=== PATIENT | female | born 1970 | race African-American/Black ===

== ENCOUNTER 2022-08-21 13:04 | Inpatient (IN) ==
[2022-08-21 17:20] LABS: ABS Basophils 0.1 10^3/uL (0.0-0.1); ABS Eosinophils 0.1 10^3/uL (0.0-0.5); ABS Lymphocytes 2.4 10^3/uL (1.0-4.8); ABS Neutrophils 4.1 10^3/uL (1.5-7.6); ABS Nucleated RBC 0.01 10^3/ul; Eosinophil % 1.6 %; Hematocrit 21.9 % (35-45); Hemoglobin 6.9 g/dL (11.5-14.3); Lymphocyte % 31.1 %; Mean Corpuscular Hemoglobin 20.5 pg (27-33); Mean Corpuscular Hgb Conc 31.4 g/dL (31-36); Mean Corpuscular Volume 65.1 fL (80-97); Mean Platelet Volume 9.2 fL (7.5-11.2); Nucleated Red Blood Cells % 0.1 /100 WBC (0.0-0.4); Platelet Count 257 10^3/uL (150-450); Red Blood Count 3.36 10^6/uL (3.63-4.92); Red Cell Distribution Width 22.1 % (12-17); White Blood Count 7.6 10^3/uL (3.8-11.8)
[2022-08-21 17:25] LABS: Albumin 3.9 g/dL (3.2-5.2); Albumin/Globulin Ratio 1.3 (1-3); C Reactive Protein 8.87 mg/L (<8.01); Creatinine, Serum 1.11 mg/dL (0.51-0.95); Globulin 2.9 g/dL (2-4); Potassium 4.5 mmol/L (3.5-5.0); Total Bilirubin 0.3 mg/dL (0.2-1.0); Total Protein 6.8 g/dL (6.4-8.9); eGFR CKD-EPI 59.4 (>60)
[2022-08-21 17:50] LABS: Microcytosis 3+
[2022-08-21] MEDS ORDERED: Morphine 4 MG/ML VIAL (1 ml) IV ONE ×2 (17:50→19:58)
[2022-08-21] MEDS ORDERED: Ondansetron 4 mg VIAL 2 MG/ML 2 ml VIAL IV ONE (17:50)
[2022-08-21] MEDS ORDERED: Lactated Ringers 1000 ml BAG 1,000 ML IV ONE ×2 (17:50→19:22)
[2022-08-21 17:51] LABS: Anisocytosis 2+
[2022-08-21 17:52] LABS: Tear Drop Cells 1+
[2022-08-21] MEDS ORDERED: Iodixanol (CONTRAST) 320 MG/ML 100 ML SDV IV ONE (18:25)
[2022-08-21] MEDS ORDERED: Ondansetron 4 mg VIAL 2 MG/ML 2 ml VIAL IV PRN (20:28)
[2022-08-21 21:03] LABS: Hematocrit for Retic CNT 21.9 % (35-45); RBC Retic Count 3.36 10^6/ul (3.63-4.92)
[2022-08-21 21:05] LABS: Corrected Retic Count 0.5 % (0.5-1.5); Immature Retic Fraction 0.41
[2022-08-21] MEDS: HYDROmorphone 0.5 MG/0.5 ML SYRINGE IV SLOW PU PRN (21:44)
[2022-08-21 21:59] LABS: % Iron Saturation 4 % (15-55); .Transferrin 389 mg/dL (203-362); Iron < 20 ug/dL (50-212); Total Iron Binding Capacity 545 mcg/dL (250-450); Unsaturated Iron Binding 525 ug/dL
[2022-08-21 22:17] LABS: Ferritin 8.6 ng/mL (11-307)
[2022-08-22] MEDS: NS 0.9% 1000 ml BAG 1,000 ML IV SCH ×2 (03:01→12:51)
[2022-08-22] MEDS: HYDROmorphone 0.5 MG/0.5 ML SYRINGE IV SLOW PU PRN ×5 (03:01→21:03)
[2022-08-22 06:40] LABS: ABS Eosinophils 0.1 10^3/uL (0.0-0.5); ABS Lymphocytes 1.9 10^3/uL (1.0-4.8); ABS Monocytes 0.8 10^3/uL (0.0-0.9); ABS Neutrophils 3.3 10^3/uL (1.5-7.6); Eosinophil % 2.3 %; Hematocrit 23.7 % (35-45); Hemoglobin 7.7 g/dL (11.5-14.3); Lymphocyte % 31.2 %; Mean Corpuscular Hgb Conc 32.4 g/dL (31-36); Mean Corpuscular Volume 67.9 fL (80-97); Mean Platelet Volume 9.4 fL (7.5-11.2); Platelet Count 233 10^3/uL (150-450); Red Blood Count 3.48 10^6/uL (3.63-4.92); Red Cell Distribution Width 23.5 % (12-17); White Blood Count 6.2 10^3/uL (3.8-11.8)
[2022-08-22 06:54] LABS: Calcium 8.5 mg/dL (8.6-10.3); Creatinine, Serum 0.87 mg/dL (0.51-0.95); Magnesium 1.6 mg/dL (1.9-2.7); Potassium 4.2 mmol/L (3.5-5.0); eGFR CKD-EPI 79.6 (>60)
[2022-08-22] MEDS ORDERED: Magnesium Sulf 4 GM/100 ML IV 4,000 MG/100 ML BAG IVPB ONE (08:07)
[2022-08-22] MEDS ORDERED: Lisinopril/HCTZ 20/25 TAB (NF) PO SCH (09:00)
[2022-08-22] MEDS ORDERED: LINACLOTIDE 145 MCG PO SCH (09:00)
[2022-08-22] MEDS ORDERED: Diatrizoate Meg/Sod(CONTRAST) 30 ML ORAL.SOLN PO ONE (18:15)
[2022-08-23] MEDS: NS 0.9% 1000 ml BAG 1,000 ML IV SCH ×3 (00:01→17:30)
[2022-08-23] MEDS: HYDROmorphone 0.5 MG/0.5 ML SYRINGE IV SLOW PU PRN ×5 (02:16→21:56)
[2022-08-23 06:13] LABS: ABS Eosinophils 0.2 10^3/uL (0.0-0.5); ABS Lymphocytes 1.9 10^3/uL (1.0-4.8); ABS Monocytes 0.5 10^3/uL (0.0-0.9); ABS Neutrophils 2.4 10^3/uL (1.5-7.6); Eosinophil % 3.1 %; Hematocrit 23.2 % (35-45); Hemoglobin 7.4 g/dL (11.5-14.3); Lymphocyte % 37.8 %; Mean Corpuscular Volume 68.7 fL (80-97); Nucleated Red Blood Cells % 0.1 /100 WBC (0.0-0.4); Platelet Count 243 10^3/uL (150-450); Red Blood Count 3.38 10^6/uL (3.63-4.92); Red Cell Distribution Width 23.1 % (12-17)
[2022-08-23 06:39] LABS: Potassium 4.4 mmol/L (3.5-5.0)
[2022-08-23 07:22] LABS: Calcium 8.4 mg/dL (8.6-10.3); Creatinine, Serum 0.9 mg/dL (0.51-0.95); Magnesium 1.9 mg/dL (1.9-2.7); eGFR CKD-EPI 76.4 (>60)
[2022-08-23] MEDS: CMC:LINACLOTIDE 72 MCG CAP (NF) PO SCH (08:36)
[2022-08-23] MEDS ORDERED: Ferric Gluconate IV 125 MG in NS 0.9% 100 ml BAG 100 ML IVPB ONE (09:30)
[2022-08-23] MEDS ORDERED: Levalbuterol 1.25MG/0.5ML NEB.SOL INH ONE (14:01)
[2022-08-23] MEDS ORDERED: Levalbuterol 1.25MG/0.5ML NEB.SOL ONE (14:04)
[2022-08-23] MEDS ORDERED: Propofol 10 MG/ML 20 ML BTL ONE (14:39)
[2022-08-23] MEDS ORDERED: Lidocaine 2% PF 5 ML VIAL ONE (14:39)
[2022-08-23] MEDS ORDERED: Magnesium Hydroxide LIQ 30 ML UDC PO ONE (14:47)
[2022-08-24] MEDS: NS 0.9% 1000 ml BAG 1,000 ML IV SCH (04:02)
[2022-08-24] MEDS: HYDROmorphone 0.5 MG/0.5 ML SYRINGE IV SLOW PU PRN (04:03)
[2022-08-24 06:06] LABS: ABS Eosinophils 0.1 10^3/uL (0.0-0.5); ABS Lymphocytes 1.5 10^3/uL (1.0-4.8); ABS Monocytes 0.4 10^3/uL (0.0-0.9); ABS Neutrophils 3.1 10^3/uL (1.5-7.6); Eosinophil % 1.6 %; Hematocrit 22.8 % (35-45); Hemoglobin 7.3 g/dL (11.5-14.3); Mean Corpuscular Hemoglobin 21.8 pg (27-33); Mean Corpuscular Hgb Conc 31.9 g/dL (31-36); Mean Corpuscular Volume 68.3 fL (80-97); Nucleated Red Blood Cells % 0.1 /100 WBC (0.0-0.4); Platelet Count 251 10^3/uL (150-450); Red Blood Count 3.34 10^6/uL (3.63-4.92); Red Cell Distribution Width 23.4 % (12-17)
[2022-08-24 06:19] LABS: Calcium 8.4 mg/dL (8.6-10.3); Creatinine, Serum 0.82 mg/dL (0.51-0.95); Magnesium 1.7 mg/dL (1.9-2.7); Phosphorus 3.4 mg/dL (2.5-5.0); Potassium 4.3 mmol/L (3.5-5.0); eGFR CKD-EPI 85.5 (>60)
[2022-08-24] MEDS ORDERED: Magnesium Sulf 4 GM/100 ML IV 4,000 MG/100 ML BAG IVPB ONE (07:13)
[2022-08-24] MEDS: CMC:LINACLOTIDE 72 MCG CAP (NF) PO SCH (08:53)
[2022-08-24] MEDS ORDERED: Ferric Gluconate IV 125 MG in NS 0.9% 100 ml BAG 100 ML IVPB ONE (09:30)
[2022-08-24] MEDS ORDERED: Sucralfate 1 gm SUSP 1 GM/10 ML UDC PO SCH (11:30)
[2022-08-24 13:58] VITALS: BP 164/96
== END 2022-08-24 15:40 | disposition home or self-care (01) | DRG 382 ==
LOC: ED 13:04 → EDHOLD 13:04 → SUATTDRO 20:21 → MED 22:16 → SUATTDRO 08-22 10:25
PROVIDERS: ADMIT Internal Medicine; ATTEND Hospitalist
PROC: O.GIEGD (2022-08-23 14:35)